=== PATIENT | male | born 1995 | race Caucasian/White ===

== ENCOUNTER 2023-10-09 21:36 | Emergency (ER) | payer SELFPAY ==
[2023-10-09 21:37] VITALS: BP 171/111
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
[2023-10-09] MEDS: ADACEL 0.5 ML IM (23:40)
[2023-10-09 23:42] VITALS: BP 171/91
== END 2023-10-10 00:08 | disposition home or self-care (01) ==
LOC: EMR 21:36
PROVIDERS: EMERGENCY PHYSICIAN Emergency Medicine
DX: S61.212A Laceration without foreign body of right middle finger without damage to nail, initial encounter (principal); W25.XXXA Contact with sharp glass, initial encounter; Y99.0 Civilian activity done for income or pay; R03.0 Elevated blood-pressure reading, without diagnosis of hypertension; Z23 Encounter for immunization
CPT/HCPCS: 99284; 90471; 12001; 90715